=== PATIENT | female | born 1995 | race Caucasian/White ===

== ENCOUNTER 2019-07-12 22:23 | Emergency (ER) | payer OTHER ==
[~2019-07-12] VITALS: Ht 167.6 cm; Wt 75.0 kg
[2019-07-12 22:27] VITALS: BP 134/92
== END 2019-07-12 22:54 | disposition home or self-care (01) ==
LOC: ER 22:23
DX: M79.601 Pain in right arm (principal); R53.1 Weakness; R07.89 Other chest pain; K21.9 Gastro-esophageal reflux disease without esophagitis; Z88.1 Allergy status to other antibiotic agents
CPT/HCPCS: 93005; 99283